=== PATIENT | female | born 1975 | race African-American/Black ===

== ENCOUNTER 2016-08-25 09:00 | Emergency (ER) | payer OTHER ==
[~2016-08-25] VITALS: Ht 162.6 cm; Wt 61.2 kg
[2016-08-25 09:10] VITALS: BP 145/71
--- NOTE | 2016-08-25 11:05 | ED.ADGEN ---
Past Medical History Past Medical History: No Pertinent History Past Surgical History: No Surgical History Alcohol Use: None Drug Use: None Adult General Chief Complaint Chief Complaint: OTHER COMPLAINTS HPI HPI Patient is a 41 year old woman, who presents to the emergency department requesting a " control injection, per transit. Patient is Lebanese speaking only, and all evaluation and examination obtained with the assistance of the language line japanese interpreter. Patient is denying any complaints, denies any concerns for STI exposure, or other concerns, no injuries. She states that she does not have a doctor, and last received an injection for control in 2012. She is looking for referral. Review of Systems Review of Systems Constitutional: Denies fever or chills. [] Eyes: Denies change in visual acuity. [] HENT: Denies nasal congestion or sore throat. [] Respiratory: Denies cough or shortness of breath. [] Cardiovascular: Denies chest pain or edema. [] GI: Denies abdominal pain, nausea, vomiting, bloody stools or diarrhea. [] : Denies dysuria. [] Musculoskeletal: Denies back pain or joint pain. [] Integument: Denies rash. [] Neurologic: Denies headache, focal weakness or sensory changes. [] Endocrine: Denies polyuria or polydipsia. [] Lymphatic: Denies swollen glands. [] Psychiatric: Denies depression or anxiety. [] Denies all complaints. Allergies Allergies Allergies Coded Allergies Type Severity Reaction Last Updated Verified No Known Drug Allergies 08/25/16 No Physical Exam Physical Exam Constitutional: Well developed, well nourished, no acute distress, non-toxic appearance. [] HENT: Normocephalic, atraumatic, bilateral external ears normal, oropharynx moist, no oral exudates, nose normal. [] Eyes: PERRLA, EOMI, conjunctiva normal, no discharge. [] Neck: Normal range of motion, no tenderness, supple, no stridor. [] Cardiovascular:Heart rate regular rhythm, no murmur, S1, S2, no rubs or gallops. [] Lungs & Thorax: Bilateral breath sounds clear to auscultation, no wheezing, rhonchi, rales. No chest wall crepitus or tenderness. [] Abdomen: Bowel sounds normal, soft, no tenderness, no masses, no pulsatile masses. [] Skin: Warm, dry, no erythema, no rash. [] Back: No tenderness, no CVA tenderness. [] Extremities: No tenderness, no cyanosis, no clubbing, ROM intact, no edema. [] Neurologic: Alert and oriented X 3, normal motor function, normal sensory function, no focal deficits noted. [] Psychologic: Affect normal, judgement normal, mood normal. [] Current Patient Data Vital Signs Vital Signs Date Time Temp Pulse Resp B/P (MAP) Pulse Ox O2 Delivery O2 Flow Rate FiO2 08/25/16 09:10 98.1 89 16 97 Room Air 98.1 EKG EKG Not indicated. [] Radiology/Procedures Radiology/Procedures Not indicated. Course & Med Decision Making Course & Med Decision Making Pertinent Labs and Imaging studies reviewed. (See chart for details) Patient with no complaints, states that she is requesting a referral to a physician who can provide control, states that she had a "injection" previously, may be an implant, unclear base of the patient's report. Patient states she does not know her exact year of , due to her location at , but she is oriented to place, and can give me additional information about her previous medical history, states she has no other problems and does not take any medications currently. After discussion with the Lebanese japanese interpreter, will refer patient to both Dr. Chang of [facility], and also give her a list of available clinics in the area for follow-up. Patient is agreeable this plan as stated, return to the ED if any concerning symptoms do develop. Discharged home in stable condition with plan as above. Dragon Disclaimer Dragon Disclaimer This electronic medical record was generated, in whole or in part, using a voice recognition dictation system. Departure Impression: Primary Impression: Encounter for medical screening examination Disposition: HOME, SELF-CARE Condition: IMPROVED JAREKRICCARDO Larisa PATEL August 25, 2016 11:04
== END 2016-08-25 10:35 | disposition home or self-care (01) ==
LOC: ER 09:00
DX: Z00.00 Encounter for general adult medical examination without abnormal findings (principal)
CPT/HCPCS: 81025; 99281

== ENCOUNTER 2020-10-03 10:48 | Emergency (ER) | payer OTHER ==
[~2020-10-03] VITALS: Ht 162.6 cm; Wt 86.3 kg
[2020-10-03] MEDS ORDERED: guaiFENesin/CODEINE 100mg/10mg 5 ML LIQUID PO STA (14:08)
--- NOTE | 2020-10-03 14:33 | RAD ---
XR CHEST 2V History: Reason: cough / Spl. Instructions: / History: Comparison: None. Findings: No consolidation or pleural effusion. Normal heart size. No pneumothorax. Impression: 1. No acute cardiopulmonary process. Electronically signed by: Juarez Castillo DO (10/03/2020 2:31 PM) [facility]
[2020-10-03] MEDS ORDERED: ALBU2.5V8 IH (14:48)
[2020-10-03] MEDS ORDERED: GUAI5LIQ PO (14:48)
[2020-10-03] MEDS ORDERED: PRED50TA PO (14:48)
[2020-10-03] MEDS ORDERED: BENZ100C PO (14:53)
--- NOTE | 2020-10-03 14:53 | PHYS DOC ---
Past Medical History Past Medical History: No Pertinent History Past Surgical History: No Surgical History Smoking Status: Never Smoker Alcohol Use: None Drug Use: None General Adult EDM: Chief Complaint: COUGH HPI: HPI: Patient is a 45 year old female who presents to the ED today for cough and nasal congestion for 2 days. Patient denies any fever. Review of Systems: Review of Systems: Constitutional: Denies fever or chills. [] Eyes: Denies change in visual acuity. [] HENT: Reports nasal congestion, denies sore throat. [] Respiratory: Reports cough, denies shortness of breath. [] Cardiovascular: Denies chest pain or edema. [] GI: Denies abdominal pain, nausea, vomiting, bloody stools or diarrhea. [] : Denies dysuria. [] Musculoskeletal: Denies back pain or joint pain. [] Integument: Denies rash. [] Neurologic: Denies headache, focal weakness or sensory changes. [] Psychiatric: Denies depression or anxiety. [] Heart Score: C/O Chest Pain: N/A Risk Factors: Risk Factors: DM, Current or recent (<one month) smoker, HTN, HLP, family history of CAD, obesity. Risk Scores: Score 0 - 3: 2.5% MACE over next 6 weeks - Discharge Home Score 4 - 6: 20.3% MACE over next 6 weeks - Admit for Clinical Observation Score 7 - 10: 72.7% MACE over next 6 weeks - Early Invasive Strategies Current Medications: Current Medications Medications (Trade) Dose Ordered Sig/Karina Start Time Stop Time Status Last Admin Dose Admin Guaifenesin/ Codeine Phosphate (Robitussin Ac) 5 ml 1X STAT 10/03/20 14:08 10/03/20 14:18 DC Allergies: Allergies: Allergies Coded Allergies Type Severity Reaction Last Updated Verified No Known Drug Allergies 08/25/16 No Physical Exam: PE: Constitutional: Well developed, well nourished, no acute distress, non-toxic appearance. [] HENT: Normocephalic, atraumatic, bilateral external ears normal, oropharynx moist, no oral exudates, nose normal. [] Eyes: PERRLA, EOMI, conjunctiva normal, no discharge. [] Neck: Normal range of motion, no tenderness, supple, no stridor. [] Cardiovascular:Heart rate regular rhythm Lungs & Thorax: Patient is actively coughing in the ED. Bilateral breath sounds clear to auscultation [] Abdomen: Bowel sounds normal, soft, no tenderness, no masses, no pulsatile masses. [] Skin: Warm, dry, no erythema, no rash. [] Back: No tenderness, no CVA tenderness. [] Extremities: No tenderness, no cyanosis, no clubbing, ROM intact, no edema. [] Neurologic: Alert and oriented X 3, normal motor function, normal sensory function, no focal deficits noted. [] Psychologic: Affect normal, judgement normal, mood normal. [] Current Patient Data: Vital Signs: Vital Signs Date Time Temp Pulse Resp B/P (MAP) Pulse Ox O2 Delivery O2 Flow Rate FiO2 10/03/20 13:48 98.2 90 20 137/90 (106) 97 Room Air 98.2 EKG: EKG: [] Radiology/Procedures: Radiology/Procedures: [] Course & Med Decision Making: Course & Med Decision Making Pertinent Labs and Imaging studies reviewed. (See chart for details) This a 45-year-old female patient presented to the ED today with cough and nasal congestion for 2 days. Chest x-ray interpreted by radiologist is negative for any acute findings, discharged to home. Follow-up with primary care doctor in 1 to 2 weeks. Recommended Covid testing. Uzma Disclaimer: Uzma Disclaimer: This electronic medical record was generated, in whole or in part, using a voice recognition dictation system. Departure Departure Impression: Primary Impression: Cough Additional Impressions: Person under investigation for COVID-19 URI (upper respiratory infection) Qualified Codes: J06.9 - Acute upper respiratory infection, unspecified Disposition: HOME / SELF CARE / HOMELESS Condition: STABLE Referrals: BLAINE ZEPEDA MD (PCP) follow up in 1-2 weeks Patient Instructions: Cough, Adult, Upper Respiratory Infection, Adult, [id number] Additional Instructions: You were seen in the ER. Your chest x-ray is negative for any acute findings. Take the prescribed medications as ordered. Follow-up with your doctor in 1 week Scripts Benzonatate (TESSALON PERLE) 100 Mg Capsule 1 CAP PO TID, #30 CAP Prov: MARIO SCHNEIDER APRN 10/03/20 Albuterol Sulfate (PROAIR HFA INHALER) 8.5 Gm Hfa.aer.ad 2 PUFF IH PRN Q4-6HRS PRN for wheezing for 21 Days, #1 INHALER 0 Refills Prov: MARIO SCHNEIDER APRN 10/03/20 Albuterol Sulfate (PROAIR HFA INHALER) 8.5 Gm Hfa.aer.ad 2 PUFF IH PRN Q4-6HRS PRN for wheezing for 21 Days, #1 INHALER 0 Refills Prov: MARIO SCHNEIDER APRN 10/03/20 Prednisone (PREDNISONE) 50 Mg Tablet 1 TAB PO DAILY, #5 TAB Prov: MARIO SCHNEIDER APRN 10/03/20 MARIO SCHNEIDER APRN Oct 03, 2020 14:53
[2020-10-03] MEDS ORDERED: BENZONATATE 100 MG CAPSULE. PO ONE (15:45)
[2020-10-03 16:00] VITALS: BP 134/72
--- NOTE | 2020-10-06 11:22 | NUR ---
IP: Attempted to contact pt concerning covid results. No answer, left a voicemail to return the call.
--- NOTE | 2020-10-06 13:33 | NUR ---
IP: Pt returned the call and I informed her of the negative covid test. Pt verbalized understanding.
== END 2020-10-03 16:17 | disposition home or self-care (01) ==
LOC: ER 10:48
DX: J06.9 Acute upper respiratory infection, unspecified (principal); Z20.822 Contact with and (suspected) exposure to COVID-19
CPT/HCPCS: 71046; 99284; U0003; U0005